=== PATIENT | female | born 1970 | race American Indian/Alaskan Native ===

== ENCOUNTER 2017-06-20 13:16 | Outpatient (CLI) | payer BC ==
--- NOTE | 2017-06-20 15:57 | Magnetic Resonance Report ---
MRI BRAIN WITHOUT AND WITH CONTRAST: 06/20/17 CLINICAL: Headache. No comparison. TECHNIQUE: Axial diffusion, T1, FLAIR, gradient echo T2*, and coronal and axial T2 and sagittal T1 plus coronal and axial postcontrast T1 sequences on a 1.5 Adele magnet. 12.0 cc of Multihance was injected intravenously for the contrast portion of the exam. Consent was obtained prior to the administration of contrast. FINDINGS: Normal ventricles and sulci. No abnormal signal and no restricted diffusion. No mass or enhancing lesion. No hemorrhage, edema or extra-axial collection. Normal pituitary and optic chiasm. The brainstem and cerebellum are normal. Intact vascular flow voids. The orbits, sinuses and soft tissues are normal. Normal calvarium and skull base. IMPRESSION: Normal study.
== END 2017-06-20 13:17 | disposition home or self-care (01) ==
LOC: SPVIMAG 13:16
PROVIDERS: ATTEND Internal Medicine Hematology & Oncology
DX: R51 Headache (principal)
CPT/HCPCS: 70553; A9577